=== PATIENT | female | born 1930 | race Caucasian/White ===

== ENCOUNTER 2016-11-02 06:00 | Inpatient (IN) | payer MEDICARE ==
[~2016-11-02] VITALS: Ht 147.3 cm; Wt 46.3 kg
[2016-11-02] MEDS ORDERED: ACETAMINOPHEN 325 MG TAB PO PRN (09:20)
[2016-11-02 11:00] VITALS: BP_SYST 146; BP_SYST 147; RESP 16; TEMP 99; Ht 147.3 cm; Wt 46.3 kg
[2016-11-02] MEDS: LUBIPROSTONE 24 MCG CAP PO SCH ×2 (11:08→21:00)
[2016-11-02] MEDS: LISINOPRIL 20 MG TAB PO SCH (11:09)
[2016-11-02] MEDS: LEVOTHYROXINE 0.05 MG TAB PO SCH (11:09)
[2016-11-02 15:57] VITALS: BP_SYST 116; BP_SYST 126; RESP 16; TEMP 98.2
[2016-11-02 19:01] VITALS: BP_SYST 148; RESP 16; TEMP 98.4
[2016-11-02] MEDS: Atorvastatin 40 MG TAB PO SCH (21:34)
[2016-11-02] MEDS: METOPROLOL XL 25 MG TAB PO SCH (21:34)
[2016-11-02 23:55] VITALS: BP_SYST 159; RESP 18; TEMP 98.3
[2016-11-03] MEDS: LEVOTHYROXINE 0.05 MG TAB PO SCH (06:09)
[2016-11-03 07:14] VITALS: BP_SYST 150; RESP 18; TEMP 98.5
[2016-11-03] MEDS: LUBIPROSTONE 24 MCG CAP PO SCH ×2 (08:31→20:27)
[2016-11-03] MEDS: ENOXAPARIN 40 MG/0.4 ML SYR SUBQ SCH (08:32)
[2016-11-03] MEDS: LISINOPRIL 20 MG TAB PO SCH (08:32)
[2016-11-03 11:46] VITALS: BP_SYST 150; RESP 20; TEMP 98.2
[2016-11-03 15:51] VITALS: BP_SYST 188; RESP 20; TEMP 98.6
[2016-11-03 20:04] VITALS: BP_SYST 123; RESP 18; TEMP 98.2
[2016-11-03] MEDS: METOPROLOL XL 25 MG TAB PO SCH (20:55)
[2016-11-03] MEDS: Atorvastatin 40 MG TAB PO SCH (20:55)
[2016-11-03 23:40] VITALS: BP_SYST 125; RESP 18; TEMP 98.6
[2016-11-04 04:00] VITALS: BP_SYST 127; RESP 18; TEMP 98.7
[2016-11-04] MEDS: LEVOTHYROXINE 0.05 MG TAB PO SCH (06:19)
[2016-11-04 07:16] VITALS: BP_SYST 143; RESP 18; TEMP 98.4
[2016-11-04] MEDS: LUBIPROSTONE 24 MCG CAP PO SCH (08:22)
[2016-11-04] MEDS: LISINOPRIL 20 MG TAB PO SCH (09:20)
[2016-11-04] MEDS: ENOXAPARIN 40 MG/0.4 ML SYR SUBQ SCH (09:20)
[2016-11-04 11:31] VITALS: BP_SYST 155; RESP 18; TEMP 98
[2016-11-04 17:00] VITALS: BP_SYST 156; RESP 20; TEMP 98.3
[2016-11-04 19:44] VITALS: BP_SYST 175; RESP 18; TEMP 98.3
[2016-11-04] MEDS: METOPROLOL XL 25 MG TAB PO SCH (20:51)
[2016-11-04] MEDS: Atorvastatin 40 MG TAB PO SCH (20:51)
[2016-11-04 23:09] VITALS: BP_SYST 162; RESP 16; TEMP 98.4
[2016-11-05 03:40] VITALS: BP_SYST 159; RESP 16; TEMP 98.1
[2016-11-05] MEDS: LEVOTHYROXINE 0.05 MG TAB PO SCH (06:34)
[2016-11-05] MEDS: LISINOPRIL 20 MG TAB PO SCH (08:16)
[2016-11-05] MEDS: ENOXAPARIN 40 MG/0.4 ML SYR SUBQ SCH (08:17)
[2016-11-05 08:19] VITALS: BP_SYST 171; RESP 16; TEMP 98
[2016-11-05 11:05] VITALS: BP_SYST 168; RESP 18; TEMP 99
[2016-11-05 15:15] VITALS: BP_SYST 169; RESP 18; TEMP 98.4
[2016-11-05 19:20] VITALS: BP_SYST 158; RESP 16; TEMP 98.4
[2016-11-05] MEDS: DOCUSATE SOD 100 MG CAP PO SCH (20:09)
[2016-11-05] MEDS: METOPROLOL XL 25 MG TAB PO SCH (20:09)
[2016-11-05] MEDS: Atorvastatin 40 MG TAB PO SCH (20:09)
[2016-11-05] MEDS ORDERED: SALINE FLUSH 10 ML FLUSH PRN (23:00)
[2016-11-05 23:18] VITALS: BP_SYST 160; RESP 16; TEMP 98.3
[2016-11-06 04:05] VITALS: BP_SYST 160; RESP 16; TEMP 98.1
[2016-11-06] MEDS: LEVOTHYROXINE 0.05 MG TAB PO SCH (06:31)
[2016-11-06 07:04] VITALS: BP_SYST 186; RESP 16; TEMP 98.4
[2016-11-06] MEDS: ENOXAPARIN 40 MG/0.4 ML SYR SUBQ SCH (08:18)
[2016-11-06] MEDS: ASPIRIN 81 MG CHEW TAB PO SCH (08:19)
[2016-11-06] MEDS: LISINOPRIL 20 MG TAB PO SCH (08:19)
[2016-11-06] MEDS: CHOLECALCIFEROL 5,000 UNITS CAP PO SCH (08:19)
[2016-11-06] MEDS: CITALOPRAM 20 MG TAB PO SCH (08:19)
[2016-11-06] MEDS: DOCUSATE SOD 100 MG CAP PO SCH ×2 (08:19→20:40)
[2016-11-06 11:03] VITALS: BP_SYST 139; RESP 16; TEMP 97.1
[2016-11-06 15:06] VITALS: BP_SYST 151; RESP 20; TEMP 97.5
[2016-11-06 19:08] VITALS: BP_SYST 131; RESP 16; TEMP 98.1
[2016-11-06] MEDS: METOPROLOL XL 25 MG TAB PO SCH (20:39)
[2016-11-06] MEDS: Atorvastatin 40 MG TAB PO SCH (20:40)
[2016-11-06 23:05] VITALS: BP_SYST 151; RESP 16; TEMP 97.9
[2016-11-07 03:04] VITALS: BP_SYST 148; RESP 16; TEMP 97.7
[2016-11-07] MEDS: LEVOTHYROXINE 0.05 MG TAB PO SCH (06:03)
[2016-11-07 07:18] VITALS: BP_SYST 178; RESP 20; TEMP 97.5
[2016-11-07] MEDS: CHOLECALCIFEROL 5,000 UNITS CAP PO SCH (08:13)
[2016-11-07] MEDS: ENOXAPARIN 40 MG/0.4 ML SYR SUBQ SCH (08:13)
[2016-11-07] MEDS: CITALOPRAM 20 MG TAB PO SCH (08:13)
[2016-11-07] MEDS: ASPIRIN 81 MG CHEW TAB PO SCH (08:13)
[2016-11-07] MEDS: DOCUSATE SOD 100 MG CAP PO SCH ×2 (08:13→20:55)
[2016-11-07] MEDS: LISINOPRIL 20 MG TAB PO SCH (08:13)
[2016-11-07] MEDS ORDERED: ERGOCALCIFEROL 50,000 UNITS (1.25 MG) CAP PO SCH (09:20)
[2016-11-07 11:52] VITALS: BP_SYST 168; RESP 16; TEMP 97.5
[2016-11-07 15:06] VITALS: BP_SYST 116; RESP 20; TEMP 97.8
[2016-11-07 19:29] VITALS: BP_SYST 154; RESP 20; TEMP 97.9
[2016-11-07] MEDS: Atorvastatin 40 MG TAB PO SCH (20:56)
[2016-11-07] MEDS: METOPROLOL XL 25 MG TAB PO SCH (20:56)
[2016-11-07 23:13] VITALS: BP_SYST 126; RESP 18; TEMP 97.8
[2016-11-08 04:25] VITALS: BP_SYST 148; RESP 18; TEMP 98.1
[2016-11-08] MEDS: LEVOTHYROXINE 0.05 MG TAB PO SCH (06:52)
[2016-11-08 07:00] VITALS: BP_SYST 163; RESP 18; TEMP 97.7
[2016-11-08] MEDS: ASPIRIN 81 MG CHEW TAB PO SCH (08:53)
[2016-11-08] MEDS: DOCUSATE SOD 100 MG CAP PO SCH ×2 (08:54→20:50)
[2016-11-08] MEDS: CITALOPRAM 20 MG TAB PO SCH (08:54)
[2016-11-08] MEDS: LISINOPRIL 20 MG TAB PO SCH (08:54)
[2016-11-08] MEDS: CHOLECALCIFEROL 5,000 UNITS CAP PO SCH (08:54)
[2016-11-08] MEDS: ENOXAPARIN 40 MG/0.4 ML SYR SUBQ SCH (08:55)
[2016-11-08 11:01] VITALS: BP_SYST 140; RESP 18; TEMP 97.8
[2016-11-08 15:55] VITALS: BP_SYST 152; RESP 18; TEMP 98.2
[2016-11-08 19:25] VITALS: BP_SYST 132; RESP 18; TEMP 97.9
[2016-11-08] MEDS: Atorvastatin 40 MG TAB PO SCH (20:50)
[2016-11-08] MEDS: METOPROLOL XL 25 MG TAB PO SCH (20:50)
[2016-11-08 22:50] VITALS: BP_SYST 143; RESP 16; TEMP 98.1
[2016-11-09] MEDS: LEVOTHYROXINE 0.05 MG TAB PO SCH (06:34)
[2016-11-09 07:11] VITALS: BP_SYST 144; RESP 16; TEMP 97.9
[2016-11-09] MEDS: CITALOPRAM 20 MG TAB PO SCH (08:20)
[2016-11-09] MEDS: DOCUSATE SOD 100 MG CAP PO SCH (08:20)
[2016-11-09] MEDS: LISINOPRIL 20 MG TAB PO SCH (08:20)
[2016-11-09] MEDS: ASPIRIN 81 MG CHEW TAB PO SCH (08:20)
[2016-11-09] MEDS: CHOLECALCIFEROL 5,000 UNITS CAP PO SCH (08:20)
[2016-11-09] MEDS: ENOXAPARIN 40 MG/0.4 ML SYR SUBQ SCH (08:21)
[2016-11-09 10:30] VITALS: BP_SYST 144; RESP 16; TEMP 97.9
== END 2016-11-09 11:22 | DRG 536 ==
LOC: ENRESERVDT → ENRESERVTM → ER 06:00 → EMR 09:19 → 2NO 10:49
PROVIDERS: ADMIT Internal Medicine; ATTEND Internal Medicine
DX: S32.502A Unspecified fracture of left pubis, initial encounter for closed fracture (principal); F03.90 Unspecified dementia, unspecified severity, without behavioral disturbance, psychotic disturbance, mood disturbance, and anxiety; W01.0XXA Fall on same level from slipping, tripping and stumbling without subsequent striking against object, initial encounter; I10 Essential (primary) hypertension; E03.9 Hypothyroidism, unspecified; E78.5 Hyperlipidemia, unspecified; R26.9 Unspecified abnormalities of gait and mobility; Z86.73 Personal history of transient ischemic attack (TIA), and cerebral infarction without residual deficits; Z79.82 Long term (current) use of aspirin
CPT/HCPCS: 70450; 71010; 80053; 81003; 82553; 84484; 85025; 85610; 85730; 93005